=== PATIENT | female | born 1990 | race African-American/Black ===

== ENCOUNTER 2024-09-04 11:51 | Emergency (ER) | payer MEDICAID, SELFPAY ==
--- NOTE | ~2024-09-04 | CT_ITS ---
CLINICAL HISTORY: central abd pain, N V D CT abdomen and pelvis with contrast Comparison: CT - CT ABDOMEN PELVIS W IV CON - 09/04/24 13:[address] - ABD PELV W IV CON ONLY [id number] - 10/14/18 13:18 EDT Findings: The lung bases are clear. Unremarkable gallbladder and solid organs. No urolithiasis. No bowel obstruction, pneumoperitoneum, or pneumatosis. Small amount of free pelvic fluid, within physiologic limits in a menstruating female. Normal appendix. No acute fracture. IMPRESSION: No acute findings. This document has been electronically signed by: Samia Shahid MD on 09/04/2024 14:55:36
[2024-09-04 11:56] VITALS: BP 144/83; PULSE 80; RESP 16; TEMP 36.8; O2SAT 97; BMI 19.1
--- NOTE | 2024-09-04 11:59 | ED.GENADULT ---
HPI - General Adult General Chief complaint: Abdominal Pain Stated complaint: Vomiting abd pain Time Seen by Provider: 09/04/24 12:57 Source: patient Mode of arrival: ambulatory Limitations: no limitations History of Present Illness ED Provider: Jed Reyes PA-C HPI narrative: 34 yo female presents to [facility] ER for evaluation of 3 weeks of nausea, vomiting, abdominal pain. She reports intermittent episodes of loose, nonbloody stool as well. No known sick contacts. She has been vomiting daily. Denies chance of . No fevers or chills. The pain is located in the middle of her abdomen, comes and goes and is cramping and stabbing in nature. unable to get in with PCP so she came here for evaluation. she does endorse daily marijunana smoking. no history of hyperemesis in the past. MD complaint: N/V abdominal pain Onset (ago): week(s) Location: abdomen Radiation: non-radiation Severity: moderate Quality: stabbing and sharp Pain Consistency: intermittent Relieving factors: none Exacerbating factors: eating Associated symptoms: loss of appetite, malaise, nausea/vomiting and weakness Treatments prior to arrival: none Related Data Previous Rx's ?Medication ?Instructions ?Recorded ondansetron 4 mg disintegrating 4 mg PO Q8H PRN nausea and 09/04/24 tablet vomiting #10 tabs Allergies Allergy/AdvReac Type Severity Reaction Status Date / Time amoxicillin [AMOXICILLIN] Allergy Mild RASH Verified 09/04/24 11:59 Review of Systems Review of Systems: Yes all other systems are reviewed and are negative Physical Exam ED Vital Signs: Vital Signs - 24 hr 09/04/24 11:56 09/04/24 15:01 09/04/24 15:22 Temperature 98.3 F 98.6 F 98.6 F Pulse Rate 80 79 79 Respiratory Rate 16 18 18 Blood Pressure 144/83 H 102/70 102/70 Pulse Oximetry 97 100 100 Oxygen Delivery Method Room Air Room Air Room Air BMI result Body Mass Index 19.1 Appearance: Alert. Oriented X3. No acute distress. Head: normocephalic, atraumatic. Eyes: Pupils equal, round and reactive to light. ENT: Pharynx normal. No tonsillar swelling or exudate. Moist mucous membranes Neck: Normal inspection. Neck supple. CVS: Normal heart rate and rhythm. Pulses normal. Respiratory: No respiratory distress. Breath sounds normal. Abdomen: Soft, flat with mild periumbilical tenderness to deep palpation only, no rebound or guarding. +BS x4 Skin: Skin warm and dry. Normal skin color. Normal skin turgor. No rashes. Extremities: No lower extremity edema. No joint swelling. Neuro/psych: Oriented X 3. Grossly normal, nonfocal CN II-XII intact. Normal speech and cognition. Course Course Course Narrative: RME performed by Anette Brock PA-C. Patient is a 34 year old assigned female at presenting to the emergency department with abdominal pain. Detailed physical exam and review of systems are deferred to the clinician oncology. Labs and swabs ordered. Patient placed back in the waiting room pending room availability and results. Medications Administered Discontinued Medications Generic Name Dose Route Start Last Admin Trade Name Freq PRN Reason Stop Dose Admin Sodium Chloride 1,000 mls @ 999 mls/hr 09/04/24 13:15 09/04/24 13:29 Ns IV 09/04/24 14:15 999 mls/hr .Q1H1M ELENA Administration Iohexol 100 ml 09/04/24 14:20 09/04/24 14:21 Iohexol 350 Mg/Ml 100 Ml Infus..Btl IV 09/04/24 14:21 85 ml ONCE ONE Administration Morphine Sulfate 4 mg 09/04/24 13:13 09/04/24 13:32 Morphine Sulfate 4 Mg/Ml Cartridge IVPUSH 09/04/24 13:14 4 mg ONCE ONE Administration Protocol Ondansetron HCl 4 mg 09/04/24 13:13 09/04/24 13:32 Ondansetron Hcl 4 Mg/2 Ml Vial IVPUSH 09/04/24 13:14 4 mg ONCE ONE Administration Medical Decision Making Medical Decision Making [facility] Narrative: 34-year-old female presenting with N/V/D and abdominal pains for the last 3 weeks. afebrile and not tachycardic on arrival. WBC 21K. not septic. with abdominal tenderness in the periumbilical area a CT scan was performed which was normal given IVF, morphine and zofran with resolution of her pain and nausea. feels well and wants to go home. tolerating PO. symptoms likely due to marijuana, advised to stop smoking stable for d/c home. return precautions discussed Differential Diagnosis Differential Diagnoses: The differential diagnosis associated with the presentation includes Cannabinoid hyperemesis syndrome, hyperemesis gravidarum, gastroenteritis, cholecystitis, colitis, dehydration, ALLEN, UTI Admission/Observation Consideration of admission/observation: Escalation of care including admission/observation considered Lab Data MDM Lab Attestation statement: I reviewed the patient's lab results. leukocytosis, no significant metabolic derangement 09/04/24 12:19 09/04/24 12:19 Labs: Lab Results 09/04/24 Range/Units 12:19 WBC 21.7 H (4.8-10.8) X10*3/uL RBC 5.00 (4.20-5.50) X10*6/uL Hgb 15.7 (12.0-16.0) g/dl Hct 44.8 (37.0-47.0) % MCV 89.6 (80.0-98.0) fL MCH 31.4 (27.0-33.0) pg MCHC 35.0 (31.0-35.0) g/dl RDW 13.3 (11.0-16.0) % Plt Count 287 (160-400) X10*3/uL MPV 10.2 (9.4-12.3) fL Immature Gran % (Auto) 0.6 H (0.0-0.4) % Neut % (Auto) 86.5 H (45-73) % Lymph % (Auto) 8.3 L (20-40) % [place] % (Auto) 3.8 (2-11) % Eos % (Auto) 0.4 (0-4) % Baso % (Auto) 0.4 (0-2) % Lymph # (Auto) 1.8 (1.2-4.9) X10*3/uL [place] # (Auto) 0.8 (0.1-1.2) X10*3/uL Eos # (Auto) 0.1 (0.0-0.4) X10*3/uL Baso # (Auto) 0.1 (0.0-0.2) X10*3/uL Abs Immat Gran (auto) 0.13 H (0.00-0.03) X10*3/uL Absolute Neuts (auto) 18.8 H (2.0-8.3) x10*3/uL Absolute Nucleated RBC 0.000 (0.0-0.012) X10*3/uL Nucleated RBC % (auto) 0.0 (0.0-0.2) /100WBC Sodium 143 (135-145) mmol/L Potassium 4.3 (3.3-5.1) mmol/L Chloride 107 (96-108) mmol/L Carbon Dioxide 24 (22-29) mmol/L Anion Gap 16 (12-20) BUN 8 L (9-16) mg/dL Creatinine 0.74 (0.5-1.4) mg/dL Estim Creat Clear Calc 89.0 Estimated GFR > 60 Random Glucose 84 (60-115) mg/dL Calcium 10.0 (8.4-10.2) mg/dL Magnesium 2.1 (1.6-2.6) mg/dL Total Bilirubin 1.2 H (0.0-1.0) mg/dL AST 27 (5-31) U/L ALT 11 (0-31) U/L Alkaline Phosphatase 50 (39-117) U/L Total Protein 8.5 H (6.5-8.0) g/dL Albumin 5.2 H (3.5-5.0) g/dL Beta HCG, Quant < 2 mIU/mL Urine Color Dark Yellow Urine Appearance Clear Urine pH 5.0 (5.0-9.0) Ur Specific [place] 1.020 (1.005-1.025) Urine Protein 30 (1+) H (Neg-Trace) mg/dL Urine Glucose (UA) Negative (Negative) mg/dL Urine Ketones 15 (Negative) mg/dL Urine Blood Trace H (Negative) Urine Nitrite Negative (Negative) Ur Leukocyte Esterase Negative (Negative) Urine RBC 3-5 H (0-2) /HPF Urine WBC 0-5 (0-5) /HPF Ur Squamous Epith Cells 3-5 (0-2) /HPF Urine Bacteria None Seen (None Seen) Hyaline Casts 0-2 (0-2) /LPF Influenza Type A (PCR) NEGATIVE (Negative) Influenza Type B (PCR) NEGATIVE (Negative) RSV RNA Qual (PCR) NEGATIVE (Negative) SARS-CoV-2 RNA (RT-PCR) NEGATIVE (Negative) Independent Interpretation I performed an independent interpretation of an: CT Scan Interpretation: CT without evidence of colonic stranding, no air fluid levels, no inflammation of the appendix appreciated Radiology Impression Discussion of test interpretation with radiology: I have reviewed the radiologist's reading. External Record Review External record reviewed: Prior outpatient labs Prescription Management I considered prescription management with: Pain Medication and Antibiotic Chronic Conditions Patient?s care impacted by: Other (chronic marijuana user) Critical Care Time Critical Care Time Critical Care Time: No Discharge Plan Discharge Clinical Impression: Cannabinoid hyperemesis syndrome Patient Disposition: Home, Self-Care Instructions: Acute Nausea and Vomiting (ED), Cannabis Abuse (ED) Additional Instructions: your lab workup today showed an elevated white blood cell count which can be seen in vomiting, bodily stress or infection your CT scan was normal. no signs of infection your symptoms are most likely due to smoking marijuana recommend STOPPING smoking all together symptoms can take a long time to completely resolve once you stop rest and drink plenty of fluids take the prescribed nausea medication as directed If you develop new or worsening symptoms call 911 or come back to the ER for further evaluation. Prescriptions: New ondansetron 4 mg tablet,disintegrating 4 mg PO Q8H PRN (Reason: nausea and vomiting) Qty: 10 0RF Interventions: ED Discharge Assessment Last Done: 09/04/24 15:22 Discharge Date/Time: 09/04/24 15:22 Print Language: Tristanian
[2024-09-04 12:25] LABS: MANUAL DIFF FLAG NO
[2024-09-04 12:26] LABS: Appearance Urine Clear; Color Urine Dark Yellow; Glucose Urine UA Negative (Negative); Leukocyte Esterase Urine Negative (Negative); Nitrite Urine Negative (Negative); UMIC TRIGGER UACC YES; Urine Blood Trace (Negative); Urine Ketones 15 mg/dL (Negative); Urine Protein 30 (1+) mg/dL (Neg-Trace)
[2024-09-04 12:29] LABS: Bacteria Urine None Seen (None Seen); Hyaline Casts Urine 0-2 /LPF (0-2); WBC Urine 0-5 /HPF (0-5)
[2024-09-04 12:33] LABS: Basophils Absolute Auto 0.1 X10*3/uL (0.0-0.2); Basophils Percent Auto 0.4 % (0-2); Eosinophils Absolute Auto 0.1 X10*3/uL (0.0-0.4); Eosinophils Percent Auto 0.4 % (0-4); Hematocrit 44.8 % (37.0-47.0); Hemoglobin 15.7 g/dl (12.0-16.0); Imm Gran Abs Auto 0.13 X10*3/uL (0.00-0.03); Imm Gran Pct Auto 0.6 % (0.0-0.4); Lymphocytes Absolute Auto 1.8 X10*3/uL (1.2-4.9); Lymphocytes Percent Auto 8.3 % (20-40); Mean Corpuscular Hemoglobin 31.4 pg (27.0-33.0); Mean Corpuscular Volume 89.6 fL (80.0-98.0); Mean Platelet Volume 10.2 fL (9.4-12.3); Monocytes Absolute Auto 0.8 X10*3/uL (0.1-1.2); Monocytes Percent Auto 3.8 % (2-11); Neutrophils Absolute Auto 18.8 x10*3/uL (2.0-8.3); Neutrophils Percent Auto 86.5 % (45-73); Platelet Count 287 X10*3/uL (160-400); Red Cell Distribution Width 13.3 % (11.0-16.0); White Blood Count 21.7 X10*3/uL (4.8-10.8)
--- OUTSIDE RECORDS SUMMARY | 2024-09-04 12:40 | XMS_ITS | Encounter Summary ---
Author Organization [employer] [facility] Address [address] [place] [address] Care Team Providers Care Towel Folder Name Role Phone Unavailable Primary Care Provider Unavailabl e Encounter Details Date Type Department Care Team (Late st Contact Info) Description 09/03/2024 Population Health Risk Score [facility] (C3) Department [address] [place] [address] Provider, Population Health Generic Social History Tobacco Use Types Packs/Day Years Used Date Smoking Tobacco: Never Assessed Comments Unknown Sex and Gender Information Value Date Recorded Sex Assigned at Not on file Legal Sex Female 1:47 PM EST Gender Identity Not on file Sexual Orientation Not on file documented as of this encounter Plan of Treatment Not on file documented as of this encounter Visit Diagnoses Not on filedocumented in this encounter
--- OUTSIDE RECORDS SUMMARY | 2024-09-04 12:40 | XMS_ITS | Clinical Summary ---
Author Organization [employer] [facility] Address [address] [place] [address] Care Team Providers Care Service Mechanic Name Role Phone Unavailable Primary Care Provider Unavailabl e Encounters Date Type Department Care Team Description 09/03/2024 Population Health Risk Score [facility] Care [facility] (C3) Department [address] [place] [id number] Provider, Population Health Generic from Last 3 Months Social History Tobacco Use Types Packs/Day Years Used Date Smoking Tobacco: Never Assessed Comments Unknown Sex and Gender Information Value Date Recorded Sex Assigned at Not on file Legal Sex Female 1:47 PM EST Gender Identity Not on file Sexual Orientation Not on file Plan of Treatment Health Maintenance Due Date Last Done Comments Depression Screening 1991 HIV Screening 1991 SDOH Screening 1991 Alcohol/Substance Use Screening 2003 Tobacco Screening 2003 Family Planning (PISQ) 2006 Hepatitis C Screening 2009 DTaP/Tdap/Td Vaccines (1 - Tdap) 2010 Hepatitis B Vaccines (1 of 3 - 19+ 3-dose series) 2010 Pap Smear 01/27/2012 Cervical Cancer Screening 2021 HPV/Cotest 2021 COVID-19 Vaccine ( - 2023-2 5 season) 2024 Influenza Vaccine (#1) 2024 Zoster Vaccines (1 of 2) 2041 RSV Patients and Pa tients Aged 60 years or older (1 - 1-dose 75+ series) 2066 HIB Vaccines Aged Out No longer eligi ble based on patient's age to complete this topic HPV Vaccines Aged Out No longer eligi ble based on patient's age to complete this topic Hepatitis A Vaccines Aged Out No long er eligible based on patient's age to complete this topic IPV Vaccines Aged Out No longer eligi ble based on patient's age to complete this topic Meningococcal Vaccine Aged Out No deidra kathy eligible based on patient's age to complete this topic Pneumococcal Vaccine: Pediat rics (0 to 5 Years) and At-Risk Patients (6 to 49) Years) Aged Out No longer eligible b ased on patient's age to complete this topic RSV under 20 months Aged Out No longe r eligible based on patient's age to complete this topic Rotavirus Vaccines Aged Out No longer eligible based on patient's age to complete this topic
[2024-09-04 13:09] LABS: Alanine Aminotransferase 11 U/L (0-31); Albumin Level 5.2 g/dL (3.5-5.0); Anion Gap 16 (12-20); Aspartate Amino Transferase 27 U/L (5-31); Bilirubin Total 1.2 mg/dL (0.0-1.0); Blood Urea Nitrogen 8 mg/dL (9-16); Carbon Dioxide 24 mmol/L (22-29); Chloride 107 mmol/L (96-108); Estimated Glomerular Filt Rate > 60; Glucose Random 84 mg/dL (60-115); HCG Quantitative < 2 mIU/mL; Magnesium 2.1 mg/dL (1.6-2.6); Potassium 4.3 mmol/L (3.3-5.1); Sodium 143 mmol/L (135-145); Total Protein 8.5 g/dL (6.5-8.0)
[2024-09-04 13:13] LABS: Influenza A PCR NEGATIVE (Negative); Influenza B PCR NEGATIVE (Negative); Resp Syncy Virus RNA Qual PCR NEGATIVE (Negative); SARS COV2 PCR INHOUSE NEGATIVE (Negative)
[2024-09-04 13:25] LABS: Alkaline Phosphatase 50 U/L (39-117)
[2024-09-04] MEDS: 0.9 % Sodium Chloride 1,000 ML 999 ML IV (13:29)
[2024-09-04] MEDS: ondansetron HCL 4 MG/2 ML VIAL IVPUSH (13:32)
[2024-09-04] MEDS: Morphine Sulfate 4 MG/ML CARTRIDGE IVPUSH (13:32)
[2024-09-04] MEDS: iohexoL 350 MG/ML 100 ML INFUS..BTL IV (14:21)
[2024-09-04 15:01] VITALS: BP 102/70; PULSE 79; RESP 18; TEMP 37; O2SAT 100
[2024-09-04 15:22] VITALS: BP 102/70; PULSE 79; RESP 18; TEMP 37; O2SAT 100
== END 2024-09-04 15:22 | disposition home or self-care (01) ==
PROVIDERS: Physician Assistant Medical; Emergency Provider Emergency Medicine
DX: R11.2 Nausea with vomiting, unspecified (principal); F12.10 Cannabis abuse, uncomplicated; R10.33 Periumbilical pain; R00.0 Tachycardia, unspecified; Z03.818 Encounter for observation for suspected exposure to other biological agents ruled out
CPT/HCPCS: 0241U; 36415; 74177; 80053; 81001; 83735; 84702; 85025; 96374; 96375; 99283; 99284; J2270; J2405; Q9967

== ENCOUNTER → 2024-09-04 13:13 | Outpatient (BNV) | payer MEDICAID, SELFPAY | PROVIDERS: Emergency Provider Emergency Medicine; Visit Provider Radiology Diagnostic Radiology | DX: R10.9 Unspecified abdominal pain (principal); R11.2 Nausea with vomiting, unspecified; R19.7 Diarrhea, unspecified | CPT/HCPCS: 74177 ==

== ENCOUNTER 2025-02-05 15:14 | Emergency (ER) | payer MEDICAID, SELFPAY ==
--- NOTE | ~2025-02-05 | XR_ITS ---
CLINICAL HISTORY: injury, pain Three views of the right hand. COMPARISON: None provided. FINDINGS: Soft tissue edema overlying the dorsal aspect of the hand. Distal radius and ulna appear intact. Carpals, metacarpals and phalanges appear intact and normal in alignment. IMPRESSION: 1. Soft tissue edema overlying the dorsal aspect of the hand. No evidence of injury to the underlying bones. This document has been electronically signed by: Darío Guzman MD on 02/05/2025 16:32:34
[2025-02-05 15:17] VITALS: BP 139/79; PULSE 92; RESP 16; TEMP 36; O2SAT 99; BMI 20.6
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
== END 2025-02-05 17:12 | disposition home or self-care (01) ==
PROVIDERS: Emergency Provider Emergency Medicine
DX: S60.221A Contusion of right hand, initial encounter (principal); V19.3XXA Pedal cyclist (driver) (passenger) injured in unspecified nontraffic accident, initial encounter; Y93.55 Activity, bike riding; Y92.9 Unspecified place or not applicable; Y99.9 Unspecified external cause status
CPT/HCPCS: 73130; 99283

== ENCOUNTER → 2025-02-05 15:19 | Outpatient (BNV) | payer MEDICAID, SELFPAY | PROVIDERS: Emergency Provider Emergency Medicine; Visit Provider Radiology Diagnostic Radiology | DX: R22.31 Localized swelling, mass and lump, right upper limb (principal) | CPT/HCPCS: 73130 ==

== ENCOUNTER 2025-02-10 19:38 | Emergency (ER) | payer MEDICAID, SELFPAY ==
--- NOTE | ~2025-02-10 | XR_ITS ---
CLINICAL HISTORY: popped out of place, pain, swelling Four views of the right knee Comparison: None provided Findings: Bones intact. No dislocations. No significant loss of joint space, osteophytes, or erosions. No joint effusion. No radiopaque foreign body. IMPRESSION: 1. No acute findings. This document has been electronically signed by: Jey Orourke MD on 02/10/2025 20:46:37
--- NOTE | 2025-02-10 19:39 | ED_ITS ---
HPI - General Adult General Chief complaint: Extremity Injury, Lower Stated complaint: right knee pain Time Seen by Provider: 02/10/25 19:58 Source: patient and EMS Mode of arrival: EMS Limitations: no limitations History of Present Illness ED Provider: Dr. Carmelina Braxton HPI narrative: 35 year old female with no significant past medical history presenting with R knee pain after squatting down to sit on the toilet immediately prior to arrival. Describes her knee cap twisting to the side and then back into place as she fell to the floor. No direct trauma to the knee. Unable to stand or bear weight on the knee secondary to pain. Slight amount of swelling in the knee. Had been well prior to the event. Admits to previous episode a few years ago. Has not seen an orthopedic surgeon about the knee. Related Data Previous Rx's ?Medication ?Instructions ?Recorded ondansetron 4 mg disintegrating 4 mg PO Q8H PRN nausea and 09/04/24 tablet vomiting #10 tabs ibuprofen 200 mg capsule 400 mg (2 x 200 mg) PO Q8H # 60 caps 02/10/25 Allergies Allergy/AdvReac Type Severity Reaction Status Date / Time amoxicillin (AMOXICILLIN) Allergy Mild RASH Verified 02/10/25 19:43 Review of Systems Review of Systems: as per HPI, full review of systems performed and negative but for the above mentioned pertinent positives and negatives. Physical Exam ED Exam Exam: GENERAL: Well-Appearing, conversant, no acute distress. SKIN: Normal skin color for ethnicity, no rashes noted. HEENT: Normocephalic, atraumatic, no stridor, EOMI. CHEST: Heart regular rate and rhythm, no murmurs, symmetric chest rise and fall. PULMONARY: Clear to auscultation bilaterally, no labored breathing, no wheezes/rhales/rhonchi. ABDOMINAL: Soft, nondistended, nontender, positive bowel sounds in all quadrants. : Deferred. MUSCULOSKELETAL: Normal tone, limited ROM secondary to pain in the R knee in extension, minimal joint effusion, negative anterior and posterior drawer test, positive Leighann's sign, no deformities, no peripheral edema NEURO: Alert and oriented x3, CN II through XII intact, equal strength and sens ation bilateral upper and lower extremities, no focal neurologic deficits. PSYCHIATRIC: Normal affect, fluid speech, good eye contact and appropriate demeanor. Vital Signs: Vital Signs - 24 hr 02/10/25 19:40 Temperature 98.0 F Pulse Rate 107 H Respiratory Rate 20 Blood Pressure 143/84 H Pulse Oximetry 98 Oxygen Delivery Method Room Air BMI result Body Mass Index 19.1 Course Course Course Narrative: This is a rapid medical exam performed by Stevie Hodge NP: Additional HPI, ROS, PE not included below will be deferred to primary provider. Patient is a 35-year-old female presenting to the ED with complaint of right knee pain. States she went to the bathroom and it popped out of place, causing her to fall to the floor. Pain medially/posteriorly and swelling since. Plan: Xrays Medical Decision Making Medical Decision Making [facility] [place] Narrative: Patient presents today with musculoskeletal injury. Differential diagnosis includes fracture, soft tissue contusion, ligamentous injury, tendon injury, infection, laceration, among others. Patient is neurovascularly intact upon arrival to the emergency department. Based on physical exam, appropriate imaging was ordered. X-ray shows no evidence of acute bony injury. No significant joint effusion. No laxity of the joint on exam. Plan for discharge home, orthopedic follow-up, knee immobilizer and crutches. Using shared decision making, plan for discharge home to follow-up with primary care and/or specialist. Patient understands and agrees with plan for discharge. Discharged home in stable condition. Differential Diagnosis Differential Diagnoses: The differential diagnosis associated with the presentation includes (as above) Radiology Impression Discussion of test interpretation with radiology: I have reviewed the radiologist's reading. Radiologist Impression: Four views of the right knee Comparison: None provided Findings: Bones intact. No dislocations. No significant loss of joint space, osteophytes, or erosions. No joint effusion. No radiopaque foreign body. IMPRESSION: 1. No acute findings. This document has been electronically signed by: Jey Orourke MD on 02/10/2025 20:46:37 Prescription Management I considered prescription management with: Pain Medication Discharge Plan Discharge Clinical Impression: Right knee sprain Patient Disposition: Home, Self-Care Instructions: Knee Sprain (ED) Prescriptions: New ibuprofen 200 mg capsule 400 mg PO Q8H Qty: 60 0RF No Action ondansetron 4 mg tablet,disintegrating 4 mg PO Q8H PRN (Reason: nausea and vomiting) Qty: 10 0RF Referrals: [facility] – [place] [facility] [Provider Group, Orthopedics] Clinical Impression: Right knee sprain Physician,None [Primary Care Provider, Medical] Print Language: Danish
[2025-02-10 19:40] VITALS: BP 143/84; PULSE 107; RESP 20; TEMP 36.7; O2SAT 98; BMI 19.1
--- NOTE | 2025-02-10 20:47 | PC.NURSE ---
Knee immobilizer for right knee applied. Crutches also given. To be medicated per provider orders.
[2025-02-10 21:13] VITALS: BP 137/81; PULSE 77; RESP 15; TEMP 36.8; O2SAT 99
== END 2025-02-10 21:14 | disposition home or self-care (01) ==
PROVIDERS: Emergency Provider Emergency Medicine
DX: M25.561 Pain in right knee (principal)
CPT/HCPCS: 73564; 99283

== ENCOUNTER → 2025-02-10 19:41 | Outpatient (BNV) | payer MEDICAID, SELFPAY | PROVIDERS: Emergency Provider Emergency Medicine; Visit Provider Radiology Vascular & Interventional Radiology | DX: M25.561 Pain in right knee (principal); R22.41 Localized swelling, mass and lump, right lower limb | CPT/HCPCS: 73564 ==

== ENCOUNTER 2025-04-19 08:49 | Outpatient (REF) | payer MEDICAID, SELFPAY ==
--- NOTE | ~2025-04-19 | XR_ITS ---
EXAMINATION: XR KNEE 1-2 VIEWS RIGHT HISTORY: M25.569 - Pain in unspecified knee COMPARISON: Comparison is made with the prior examination dated 2124. FINDINGS: Standing AP views of both knees and hand additional sunrise patellar view of the right knee are submitted. Osseous mineralization is normal. There is no fracture or dislocation. The joint spaces are preserved. The soft tissues are unremarkable. XR/XR knee RT 2V IMPRESSION: Unremarkable examination of the right knee. Electronically signed by: Alvarado Whalen MD 04/19/2025 01:21 PM EDT
--- OUTSIDE RECORDS SUMMARY | 2025-04-20 09:38 | XMS_ITS | Clinical Summary ---
Author Organization [employer] Address [address] [facility] [address] [place] [address] Care Team Providers Care Teradata Solution Architect Name Role Phone Unavailable Primary Care Provider [...]
== END 2025-04-19 08:50 | disposition home or self-care (01) ==
LOC: HO.HOSX 08:49
PROVIDERS: Visit Provider Physician Assistant
DX: S83.001D Unspecified subluxation of right patella, subsequent encounter (principal); W18.11XD Fall from or off toilet without subsequent striking against object, subsequent encounter
CPT/HCPCS: 73560; 99212

== ENCOUNTER 2025-04-19 12:56 | Outpatient (AMB) | payer MEDICAID, SELFPAY ==
--- NOTE | 2025-04-19 13:28 | MHC.OFFVIS ---
Vital Signs 04/19/25 13:33 Height 5 ft 5 in Weight 115 lb 6 oz BMI 19.2 Handedness Right Intake Visit Reasons: ER - RT knee sprain Intake Note: Loren is a 35 year old female who presents today for a evaluation of her right knee sprain, DOI 02/10/25. Patient reports she was squatting down to sit on the toilet and she felt her knee a pop in her knee and she feel. She mentions that her pain is on the lateral aspect of the knee. Patient states that her pain is a little better. She notices stiffness/stretching sensation when she is standing, sitting and stretching. Patient has tried taking Tylenol and Advil with mild relief. Allergies amoxicillin (AMOXICILLIN) Allergy (Mild, Verified 04/19/25 13:32) RASH HPI HPI ER - RT knee sprain: Details: Ms. Augustin is a 35-year-old female who presents to the office today for evaluation of a right knee injury that she sustained on 02/10/2025. She states that she was moving from a standing to squatting position when her right kneecap felt like it dislocated. She states that it popped back into place. She reports that this has happened multiple times in the past. The majority of her pain is located on the lateral aspect of the knee. She reports that he pain worsens with prolonged standing, stair climbing and stretching. She has tried Tylenol and Advil with mild relief. [facility] Social History (Updated 04/19/25 @ 13:33 by Edward Gauthier) Alcohol intake: current Alcohol intake frequency: holidays/special occasions only Patient Tobacco Use Status: Current everyday Tobacco user Cigarettes Per Day: 10 Current occupational status: unemployed Review of Systems Const All systems reviewed & are unremarkable except as noted in HPI and below Physical Exam Vital Signs: BMI result Body Mass Index 19.2 Const General: cooperative, healthy appearing and no acute distress Resp Effort & Inspection: normal respiratory effort and able to speak in complete sentences Extrem Other: Right knee: Normal to inspection. No ecchymosis, erythema, or joint effusion. No tenderness to palpation along the medial or lateral joint lines. Tenderness to palpation along the lateral aspect of the patella. Full knee extension and flexion. Negative Verito's. Negative anterior drawer. NVI. Psych Appearance: grossly normal Mental Status: mental status grossly normal Attitude: cooperative Assessment & Plan Assessment & Plan (1) Subluxation of right patella: Code(s): S83.001A - Unspecified subluxation of right patella, initial encounter Category: Medical Plan Ms. Augustin is a 35-year-old female who presents to the office today for evaluation of a right knee injury that she sustained on 02/10/2025. She states that she was moving from a standing to squatting position when her right kneecap felt like it dislocated. She states that it popped back into place. She reports that this has happened multiple times in the past. The majority of her pain is located on the lateral aspect of the knee. She reports that he pain worsens with prolonged standing, stair climbing and stretching. She has tried Tylenol and Advil with mild relief. While the office today, we discussed conservative treatment options including physical therapy and knee bracing. Patient was fit for a Saúl Pull knee brace off the shelf while in the office today that she will wear during activities. I encouraged not wearing the knee brace all the time to avoid stiffness. I also recommended formal physical therapy to work on glute core quad strengthening. Patient will follow up in 6-8 weeks after physical therapy, sooner if needed. X-rays of the right knee which were obtained while in the office today and were reviewed by me, Matilda Torres PA-C, revealed no acute fracture or dislocation. Orders: Orders XR knee RT 2V Today M25.569 - Pain in unspecified knee Coding Level of Care Code New Pt Level 3 (91723) Diagnoses Subluxation of right patella S83.001A
[2025-04-19 13:33] VITALS: BMI 19.2
--- OUTSIDE RECORDS SUMMARY | 2025-04-19 16:20 | XMS_ITS | Clinical Summary ---
Author Organization [employer] Address [address] [place] [address] Care Team Providers Care Manager Parking Name Role Phone Unavailable Primary Care Provider Unavailabl e Social History Tobacco Use Types Packs/Day Years Used Date Smoking Tobacco: Never Assessed Comments Unknown Sex and Gender Information Value Date Recorded Sex Assigned at Not on file Legal Sex Female 1:47 PM EST Gender Identity Not on file Sexual Orientation Not on file Plan of Treatment Health Maintenance Due Date Last Done Comments Depression Screening 1991 HIV Screening 1991 SDOH Screening 1991 Disability Screening 1991 Alcohol/Substance Use Screening 2003 Tobacco Screening 2003 Family Planning (PISQ) 2006 HPV Vaccines (1 - 3-dose series) 2006 Hepatitis C Screening 2009 DTaP/Tdap/Td Vaccines (1 - Tdap) 2010 Hepatitis B Vaccines (1 of 3 - 19+ 3-dose series) 2010 Pap Smear 01/27/2012 Cervical Cancer Screening 2021 HPV/Cotest 2021 COVID-19 Vaccine (1 - 2023-2 5 season) 2025 Influenza Vaccine (#1) 2025 Zoster Vaccines (1 of 2) 2041 RSV [...] patient's age to complete this topic Meningococcal B Vaccine Aged Out No l onger eligible based on patient's age to complete this topic Meningococcal Vaccine Aged Out No deidra kathy eligible based on patient's age to complete this topic Pneumococcal Vaccine: Pediat rics (0 to 5 Years) and At-Risk Patients (6 to 49) Years Aged Out No longer eligible b ased on patient's age to complete this topic RSV under 20 months Aged Out No longe r eligible based on patient's age to complete this topic Rotavirus Vaccines Aged Out No longer eligible based on patient's age to complete this topic
== END 2025-04-19 14:13 | disposition home or self-care (01) ==
LOC: HO.HOS 12:57
PROVIDERS: Visit Provider Physician Assistant
DX: S83.001A Unspecified subluxation of right patella, initial encounter (principal)
CPT/HCPCS: 99203

== ENCOUNTER → 2025-04-19 13:02 | Outpatient (BNV) | payer MEDICAID, SELFPAY | PROVIDERS: Visit Provider Radiology Diagnostic Radiology | DX: M25.569 Pain in unspecified knee (principal) | CPT/HCPCS: 73560 ==